=== PATIENT | female | born 1955 | race African-American/Black ===

== ENCOUNTER 2017-03-19 19:23 | Emergency (ER) | payer MEDICARE, OTHER ==
[~2017-03-19 19:23] MED LIST: AROMASIN25 PO; CELEBREX1 PO; CYMBALTA60 PO; LOP50 PO; MAX25 PO; NEUR800 PO; NORV10 PO; PRIN20 PO; TRILEP300 PO; ZOFRAN4 PO
== END 2017-03-19 21:00 | disposition home or self-care (01) ==
LOC: ER 19:23
DX: M54.2 Cervicalgia (principal); G89.29 Other chronic pain; Z88.8 Allergy status to other drugs, medicaments and biological substances; Z79.899 Other long term (current) drug therapy
CPT/HCPCS: 93005; 93971; 99283; J1885; J2360

== ENCOUNTER 2017-04-01 20:36 | Emergency (ER) | payer MEDICARE | END 2017-04-01 21:14 | disposition home or self-care (01) | LOC: ER 20:36 | DX: K08.89 Other specified disorders of teeth and supporting structures (principal); K21.9 Gastro-esophageal reflux disease without esophagitis; F32.9 Major depressive disorder, single episode, unspecified; F41.9 Anxiety disorder, unspecified; Z85.3 Personal history of malignant neoplasm of breast; Z88.6 Allergy status to analgesic agent; Z79.899 Other long term (current) drug therapy | CPT/HCPCS: 99282 ==